=== PATIENT | male | born 1975 | race Two or more races ===

== ENCOUNTER → 2022-07-15 | Emergency (ER) | payer OTHER ==
[~2022-07-15] VITALS: Ht 172.7 cm; Wt 102.1 kg
[~2022-07-15] MED LIST: COZAAR100 MG; TOPROL XL25 M1
== END | disposition home or self-care (01) ==
LOC: ER 11:17
DX: S91.111A Laceration without foreign body of right great toe without damage to nail, initial encounter (principal); W45.8XXA Other foreign body or object entering through skin, initial encounter; Y93.89 Activity, other specified; Y92.018 Other place in single-family (private) house as the place of occurrence of the external cause; Y99.9 Unspecified external cause status